=== PATIENT | female | born 1960 | race Caucasian/White ===

== ENCOUNTER 2018-11-08 13:40 | Inpatient (IN) | payer BC ==
[~2018-11-08] VITALS: Ht 160 cm; Wt 83.0 kg
[2018-11-08 13:48] VITALS: Ht 160 cm; Wt 83.0 kg
--- NOTE | 2018-11-08 13:50 | NUR ---
INSTRUCTED TO GIVE CLEAN CATCH URINE SPECIMEN, AMBULATED TO ED LOBBY.
[2018-11-08 14:13] LABS: BASOPHIL % 0.1 % (0-2); PLATELET COUNT 263 x10^3mcL (130-400); RED CELL DISTRIBUTION WIDTH 12.6 % (11.5-14.5)
[2018-11-08 14:49] LABS: ALKALINE PHOSPHATASE 126 U/L (46-116); ALT/SGPT 33 U/L (14-59); AST/SGOT 15 U/L (15-37); BILIRUBIN TOTAL 0.3 mg/dL (0.20-1.00); CALCIUM 7.6 mg/dL (8.5-10.1); CREATININE SERUM 0.8 mg/dL (0.6-1.0); GFR1 > 60 mL/min; GLUCOSE SERUM 327 mg/dL (74-106); LIPASE 102 IU/L (73-393); TOTAL PROTEIN, SERUM 7.2 g/dL (6.4-8.2)
--- NOTE | 2018-11-08 15:00 | NUR ---
PT PRESENTS TO ED WITH C/O BUQ ABD PAIN X 1 WEEK PT REPORTS INTERMITTENT DIARRHEA HOWEVER NO EPISODES TODAY, PT STATES SHE VISITED HER PMD OFFICE 11/04/18 AND WAS GIVEN OMEPRAZOLE AND 2 INJECTIONS. PT REPORTS VOMITING AND DIARRHEA RESOLVED. HOWEVER, ABD PAIN STILL PERSISTS. PT AAOX4 ABD SOFT ROUND AWAITING MD DE LA GARZA AND ORDERS. WILL MONITOR
--- NOTE | 2018-11-08 15:08 | NUR ---
URINE COLLECTED WILL DIP
[2018-11-08 15:46] LABS: CHLORIDE SERUM 102 mmol/L (98-107); POTASSIUM SERUM 4.3 mmol/L (3.5-5.1); SODIUM SERUM 137 mmol/L (136-145)
[2018-11-08 15:48] LABS: ALBUMIN 3.1 g/dL (3.4-5.0)
--- NOTE | 2018-11-08 16:40 | NUR ---
MSE COMPLETED BY DR BRIGGS
--- NOTE | 2018-11-08 17:09 | NUR ---
PT MEDICATED PER MD ORDERS SEE EMAR
--- NOTE | 2018-11-08 17:25 | NUR ---
PT TO CT
--- NOTE | 2018-11-08 18:00 | NUR ---
PT BACK FROM CT WITH NO INCIDENT
--- NOTE | 2018-11-08 18:35 | NUR ---
PT FEELING A LOT BETTER SINCE BEING MEDICATED. FAMILY AT BEDSIDE PT WATCHING TV WILL CONTINUE TO MONITOR
--- NOTE | 2018-11-08 19:08 | NUR ---
REPORT GIVEN TO WALT ALLEN AND MANISH MATA RN RESUMING CARE OF PT AT THIS TIME
--- NOTE | 2018-11-08 19:30 | NUR ---
PT AMBULATED WITH STEADY GAIT TO THE RESTROOM.
--- NOTE | 2018-11-08 20:00 | NUR ---
PT STATING SHE IS HUNGRY AND IS CONCERNED HER BLOOD SUGAR IS LOW. DR. BRIGGS MADE AWARE. BS IS 129.
--- NOTE | 2018-11-08 20:43 | NUR ---
GROUNDS KEEPER REPORTED THAT PT HAD CONCERNS WITH RECEIVING ORAL CONTRAST DUE TO POSSIBLE OBSTRUCTION. SPOKE TO DR BRIGGS REGARDING PLAN OF CARE. REPORTS THAT HE WILL CANCEL IT FOR NOW AND [place] UPON ADMISSION.
--- NOTE | 2018-11-08 21:29 | NUR ---
PT C/O NAUSEA AND VOMITTING, REQUESTING ANTI NAUSEA MEDICATION. MD MADE AWARE. PT AMBULATED WITH STEADY GAIT TO THE RESTROOM.
--- NOTE | 2018-11-08 21:39 | NUR ---
PT MEDICATED PER MD ORDER. PT VERBALIZED UNDERSTANDING OF MEDICATION PRIOR TO ADMINISTRATION.
[2018-11-08] MEDS ORDERED: OMEPRAZOLE40 M1 PO (22:10)
[2018-11-08] MEDS ORDERED: SUCRALFATE1 GM PO (22:11)
[2018-11-08] MEDS ORDERED: METFORMIN HYD1000 M2 PO (22:11)
[2018-11-08] MEDS ORDERED: JANUVIA100 M1 PO (22:11)
[2018-11-08] MEDS ORDERED: INVOKANA300 MG PO (22:13)
[2018-11-08] MEDS ORDERED: LANTUS SOLOS100 U/M1 SQ (22:15)
[2018-11-08] MEDS ORDERED: HUMALOG MIX75/253 ML SC (22:15)
--- NOTE | 2018-11-08 22:33 | NUR ---
REPORT CALLED TO TIFFANY AREVALO TO ASSUME CARE OF PT.
[2018-11-08 22:50] LABS: CHOLESTEROL/HDL RATIO 2.5
--- NOTE | 2018-11-08 22:50 | NUR ---
RECEIVED FROM ED,PUT IN ROOM 237 B AND MADE COMFORTABLE.MAINLY HAITIAN,POLY OPERATOR USED.PATIENT TO BE ADMITTED BY Zaid GONZALEZTELE 6 ASSIGNED,SR.NO CHEST PAIN.
--- NOTE | 2018-11-08 22:52 | NUR ---
PT ADMITTED TO TELE, TRANSPORTED BY RN OJZEF AND EMT MINDY. PT IS AWAKE, ALERT, RESP E/U, NAD NOTED. PT VERBALIZED UNDERSTANDING OF PLAN OF CARE.
[2018-11-08 23:07] VITALS: BP 130/69
--- NOTE | 2018-11-08 23:15 | NUR ---
RECEIVED PT FROM ER, PT ADMIT FOR SBO, PT IS A/O X4, VERBAL RESPONSIVE, ABLE TO TELL WHAT SHE NEEDS. LUNG SOUND CLEAR BILATERAL, NO COUGH, NO SOB, PT IS ON TELE 6, NSR, DENY ANY CHEST PAIN OR DISCOMFORT, BOWEL SOUND HYPOACTIVE, DISTENTED. PT C/O DIARRHEA X 1 DAY. DENY ANY N/V AT THIS MOMENT, C/O MILD ABD PAIN 2/10 AT THIS MOMENT, PEDAL PULSE PRESENT BOTH FEET, NO EDEMA, IV AT RIGHT AC, NO LEAKING, NO INFILTRAITON. ALL ADLS ASSIST, ALL NEED MET, CALL LIGHT IN REACH, WILL CONTINUE TO MONTIOR.
--- NOTE | 2018-11-09 00:52 | NUR ---
NS AT 100 CC/ HOUR INITIATED ON ADMISSION. WITH HER EARLIER.UA NEEDED,NOT ABLE TO SAVE EARLIER,HAS NO COLLECTION HAT IN TOILET.REMINDED PATIENT NEXT TIME SHE GO,UA NEED,UDS,UA CULTURE.CALL LIGHT IN REACH.
--- NOTE | 2018-11-09 04:49 | NUR ---
UA UDS AND CULTURE SENT TO LAB.
--- NOTE | 2018-11-09 05:20 | NUR ---
I AND O MEASURED.NO VOMITING OR DIARRHEA SINCE ADMISSION.REMAINS NPO,SBFT THIS AM.
[2018-11-09 05:32] LABS: microscopic required? NO
[2018-11-09 05:48] LABS: urine erythrocyte NEGATIVE (NEGATIVE)
[2018-11-09 05:58] LABS: AMPHETAMINE QUAL UR NONE DETECTED (See below)
[2018-11-09 06:18] VITALS: BP 125/66
--- NOTE | 2018-11-09 06:54 | NUR ---
NEW ORDER FROM DR WALDRON TO INSERT NGT TO LOW INTERMITTENT SUCTION,AGREED WIT IT AFTER EPI TALK TO PATIENT ,RATIONALE OF IT.
--- NOTE | 2018-11-09 07:09 | NUR ---
NGT TRIED TO PUT 2X,PATIENT CANNOT TOLERATE THIS TIME,KEEP GAGGING.WILL HAVE NEXT SHIFT TRIED.VAUGHN AND CHERRY AWARE.WILL ENDORSE TO JAMIA,AM SHIFT.IT IS A NEW ORDER 20 MINUTES AGO.
[2018-11-09 07:28] LABS: BASOPHIL % 0.3 % (0-2); PLATELET COUNT 246 x10^3mcL (130-400); RED CELL DISTRIBUTION WIDTH 12.7 % (11.5-14.5)
--- NOTE | 2018-11-09 07:30 | NUR ---
RECEIVED PT IN BED A/A/OX4 DENIES LY. RESP EVEN AND UNLABORED WITH CLEAR BS BILAT. DENIES ANY SOB/CP/PRESSURE AT THIS TIME. NSR ON TELE. IVF TO RAC. NO EDEMA NOTED. ABD SOFT, OBESE, TENDER TO TOUCH WITH ACTIVE BS X4. DENIES ANY N/V OR PAIN AT THIS TIME. C/O FEELING BLOATED. VOIDING FREELY. AMBULATORY. NPO EXCEPT MEDS FOR SBFT ORDERED THIS AM. PT WITH ORDER FOR NGT PLACEMENT REFUSED ATTEMPT AT THIS TIME SINCE THEY HAD ATTEMPTED AND SHE STATED HER NOSE WAS HURTING AT THIS TIME. AGREED TO ALLOW LATER TODAY. CALL LIGHT IN REACH NEEDS ATTENDED TO.
[2018-11-09 07:31] LABS: CALCIUM 7.7 mg/dL (8.5-10.1); CARBON DIOXIDE 24.5 mmol/L (21-32); CHLORIDE SERUM 108 mmol/L (98-107); CREATININE SERUM 0.6 mg/dL (0.6-1.0); GFR1 > 60 mL/min; GLUCOSE SERUM 105 mg/dL (74-106); MAGNESIUM 1.8 mg/dL (1.8-2.4); PHOSPHOROUS 3.3 mg/dL (2.5-4.9); POTASSIUM SERUM 3.9 mmol/L (3.5-5.1); SODIUM SERUM 143 mmol/L (136-145)
--- NOTE | 2018-11-09 08:38 | NUR ---
PT WAS ASKED DURING BEDSIDE REPORT IF SHE WOULD ALLOW ANOTHER ATTEMPT TO INSERT NGT AND REFUSED AT THIS TIME. STATED NOSE WAS SORE AND WANTED TO WAIT. CURRENTLY INSTRUCTIONAL SUPPORT TECHNICIAN IN TO SPEAK WITH PT EXPLAINING SBFT EXAM TO BE DONE THIS AM. PT AGREABLE. NGT INSERTION WILL BE POSTPONE SINCE PT MAY BECOME NAUSEOUS WITH PROCEDURE AND PT REFUSED INSERTION AT THIS TIME. PT REQUESTED ZOFRAN PER EMAR TO PREVENT NAUSEA WITH CONTRAST TO BE INGESTED.
[2018-11-09 08:40] VITALS: BP 122/68
--- NOTE | 2018-11-09 09:45 | NUR ---
PT WITH ON GOING SBFT EXAM. CONTRAST GIVEN AND XRAY TAKEN. PT AT BEDSIDE DENIES ANY DISCOMFORT OR N/V. CALL LIGHT IN REACH NEEDS ATTENDED TO.
--- NOTE | 2018-11-09 10:13 | NUR ---
DR. PAREDES AT [facility]. MADE AWARE OF RATIONALE FOR NGT NOT BEING INSERT AT THIS TIME. PER MD NO NGT NECESSARY AT THIS TIME. PT DOES NOT REQUIRE INSERTION. WILL CONT TO MONITOR.
[2018-11-09 12:32] VITALS: BP 117/70
--- NOTE | 2018-11-09 15:40 | NUR ---
MADE AWARE BY RADIOLOGY THAT SBF EXAM WAS COMPLETED. PT RESTING AT THIS TIME. DENIES ANY PAIN/DISCOMFORT. CALL LIGHT IN REACH NEEDS ATTENDED TO.
--- NOTE | 2018-11-09 16:20 | NUR ---
DR. PAREDES CALLED TO INQUIRE ABOUT SBFT, MADE AWARE THAT EXAM JUST CONCLUDED. WITH NO RESULTS POSTED AT THIS TIME. STATED HE WILL F/U.
--- NOTE | 2018-11-09 17:21 | NUR ---
PT C/O NAUSEA MEDICATED WITH ZOFRAN IVP PER EMAR. PT NOTED WITH BS 86 CONT TO BE NPO AT THIS TIME. DR. FLORES PAGED TO REQUEST D5 SINCE PT WILL CONT TO BE NPO.
[2018-11-09 17:50] VITALS: BP 118/69
--- NOTE | 2018-11-09 18:01 | NUR ---
NOTED IV TO RAC LEAKING NEW IV INSERTED LFA 22G.
--- NOTE | 2018-11-09 18:30 | NUR ---
NOTED SBFT RESULTS NEGATIVE FOR SMALL BOWEL OBSTRUCTION. PAGE GATE MESSAGE SENT TO DR. FLORES. AWAITING FURTHER ORDERS.
--- NOTE | 2018-11-09 19:16 | NUR ---
DR. PAREDES PAGED REGARDING SBFT RESULTS. ENDORSE TO NOC SHIFT NURSE FOR CALL BACK.
--- NOTE | 2018-11-09 19:21 | NUR ---
DR OCHOA TALKED TO DR PAREDES,ORDERED FULL LIQUID DIET,NO SURGERY IN AM.
--- NOTE | 2018-11-09 19:35 | NUR ---
SHIFT REASSESSMENT DONE.PATINT ALERT AND ORIENTED. AT BEDSIDE,SUPPORTIVE OF CARE.PATIENT NOW ON FULL LIQUID DIET.IVF CHANGED TO NS,STILL UNVERFIED.NO SURGERY IN AM,PATIENT MADE AWARE.LFA IV SITE NEW TODAY,INTACT AND PATENT.CALL LIGHT IN REACH.
--- NOTE | 2018-11-09 20:27 | NUR ---
IVF NS AT 70 CC/ HOUR.FAMILY AT BDSIDE.UPDATED WITH PATIENT,NO SURGERY.WANTING TO KNOW IF SHE IS FOR DC TOMORROW,I SAY NO ORDER YET.
[2018-11-09 21:05] VITALS: BP 113/57
--- NOTE | 2018-11-10 04:31 | NUR ---
SLEEPING COMFORTABLY.NO COMPLAINT,IVF NS INFUSING.CALL LIGHT IN REACH.
[2018-11-10 05:55] VITALS: BP 115/53
--- NOTE | 2018-11-10 06:12 | NUR ---
PATIENT I AND O MEASURED.NO DISTRESS THIS SHIFT.NO VOMITING.NO DIARRHEA.WILL ENDORSE TO NEXT SHIFT.
[2018-11-10 07:06] LABS: CARBON DIOXIDE 22.5 mmol/L (21-32); CHLORIDE SERUM 106 mmol/L (98-107); CREATININE SERUM 0.5 mg/dL (0.6-1.0); GFR1 > 60 mL/min; GLUCOSE SERUM 103 mg/dL (74-106); MAGNESIUM 1.7 mg/dL (1.8-2.4); PHOSPHOROUS 3.1 mg/dL (2.5-4.9); POTASSIUM SERUM 4.4 mmol/L (3.5-5.1); SODIUM SERUM 141 mmol/L (136-145)
[2018-11-10 07:16] LABS: BASOPHIL % 0.4 % (0-2); PLATELET COUNT 267 x10^3mcL (130-400); RED CELL DISTRIBUTION WIDTH 12.9 % (11.5-14.5)
--- NOTE | 2018-11-10 07:30 | NUR ---
PT ENDORSE TO ME THIS MORNING. LAYING IN BED RESTING AA/O X4, [place] SPK. TELE 6 SR NOTED, HR 76, DENIES ANY CP OR PRESSURE AT THIS TIME. BOWEL SOUNDS ACTIVE IN ALL FOUR QUADS, LAST BM 11/10, CURRENTLY ON FULL LIQ DIET/ TOLERATING WELL. AMB, VOIDS FREELY. IV TO THE LFA INTACT AND PATENT/ INFUSING AT 40ML/HR, NO REDNESS OR SWELLING NOTED. CALL LIGHT IN REACH. BED IN LOW POSITION, X2 SIDE RAILS UP. WILL CONTINUE TO MONITOR
[2018-11-10 08:38] VITALS: BP 111/55
--- NOTE | 2018-11-10 10:04 | NUR ---
PT C/O OF GEN BODY DISCOMFORT, MEDICATED PER EMAR. PT TOLERATED FULL LIQ SNACKS PROVIDED. WILL CONTINUE TO MONITOR.
[2018-11-10 12:16] VITALS: BP 140/67
--- NOTE | 2018-11-10 14:04 | NUR ---
PT TOLERATED 100% OF FULL LIQ LUNCH/ DENIES ANY N/V AT THIS TIME. WILL CONTINUE TO MONITOR.
[2018-11-10 17:46] VITALS: BP 118/68
--- NOTE | 2018-11-10 18:37 | NUR ---
NO ACUTE CHANGES AT THIS TIME. NO ACUTE RESP DISTRESS OR SOB NOTED. DENIES ANY ABD PAIN OR DISCOMFORT. TOLERATED 100% OF REG DINNER WITH NO N/V NOTED. IV TO THE LFA INTACT AND PATENT/ NO REDNESS OR SWELLING NOTED. WILL ENDORSE TO INCOMING RN.
--- NOTE | 2018-11-10 19:25 | NUR ---
RECIEVED PT IN NO ACUTE DISTRESS. AOX4. TELE #6, SR. BREATHING E/U. BOWEL SOUNDS ACTIVE. DENIES ABD PAIN/N/V. IV TO LFA, PATENT. BED IN LOWEST POSITION, 2 SIDE RAILS UP, CALL LIGHT IN REACH. INSTRUCTED TO CALL FOR ASSISTANCE.
[2018-11-10 19:42] VITALS: BP 117/62
--- NOTE | 2018-11-11 02:04 | NUR ---
RESTING WITH EYES CLOSED. BREATHING E/U. NO ACUTE DISTRESS NOTED. WILL CONTINUE TO MONITOR.
[2018-11-11 05:20] VITALS: BP 117/60
--- NOTE | 2018-11-11 06:15 | NUR ---
NO C/O ABD PAIN/N/V OVERNIGHT. NO ACUTE DISTRESS NOTED. WILL ENDORSE TO ONCOMING RN.
--- NOTE | 2018-11-11 07:11 | NUR ---
RECEIVED PT FROM GEOMETRY TUTOR NURSE. PT RESTING IN BED, AOX4, RESP E/U ON RA. DENIES ABD PAIN OR N/V, NO ACUTE DISTRESS NOTED. ON TELE 6 SHOWING NSR, HR: 86. IV TO LFA W/ NO SIGNS OF INFILTRATION, IVF INFUSING WELL. BED IN LOWEST POSITION AND CALL LIGHT WITHIN REACH. WILL CONTINUE TO MONITOR.
[2018-11-11 08:12] VITALS: BP 113/63
[2018-11-11 12:07] VITALS: BP 113/71
--- NOTE | 2018-11-11 12:30 | NUR ---
PT IN BED HAVING LUNCH, AOX4, RESP E/U ON RA. DENIES ABD PAIN OR N/V. TOLERATING REGULAR DIET WELL. NO ACUTE DISTRESS NOTED. BED IN LOWEST POSITION AND CALL LIGHT WITHIN REACH. WILL CONTINUE TO MONITOR.
[2018-11-11 13:00] VITALS: BP 113/71
--- NOTE | 2018-11-11 13:40 | NUR ---
PT DISCHARGED. REVIEWED VISIT SUMMARY, EDUCATIONAL PACKET AND FOLLOW UP INSTRUCTIONS. PT AOX4, RESP E/U ON RA, VS STABLE, DENIES PAIN AT THIS TIME. IV TO L HAND REMOVED, CATH INTACT, GAUZE DRESSING APPLIED. PT AMBULATORY TO DISCHARGE OFFICE, ESCORTED BY FRIEND AND STUDENT NURSE TATY W/ NO ACUTE INCIDENCE.
== END 2018-11-11 13:40 | disposition home or self-care (01) | DRG 394 ==
LOC: ED 13:40 → MU 21:14 → DU 21:14
PROVIDERS: Internal Medicine; ADMIT Internal Medicine
DX: K43.9 Ventral hernia without obstruction or gangrene (principal); E44.1 Mild protein-calorie malnutrition; E78.5 Hyperlipidemia, unspecified; E86.0 Dehydration; E11.65 Type 2 diabetes mellitus with hyperglycemia; Z68.34 Body mass index [BMI] 34.0-34.9, adult; Z90.49 Acquired absence of other specified parts of digestive tract; Z79.4 Long term (current) use of insulin; E83.51 Hypocalcemia; K21.9 Gastro-esophageal reflux disease without esophagitis
CPT/HCPCS: 82962; G0378; J1815; J2270; J2405; J7030; J7042; J8597; Q0092; Q9967

== ENCOUNTER 2019-07-03 08:21 | Inpatient (IN) | payer BC ==
[~2019-07-03] VITALS: Ht 154.9 cm; Wt 84.8 kg
[~2019-07-03 08:21] MED LIST: HUMALOG MIX75/253 ML SC; INVOKANA300 MG PO; JANUVIA100 M1 PO; LANTUS SOLOS100 U/M1 SQ; METFORMIN HYD1000 M2 PO; OMEPRAZOLE40 M1 PO; SUCRALFATE1 GM PO
[2019-07-03 08:36] VITALS: Ht 154.9 cm; Wt 84.8 kg
[2019-07-03 08:45] LABS: microscopic required? NO
[2019-07-03 09:19] LABS: BASOPHIL % 0.1 % (0-2); PLATELET COUNT 300 x10^3mcL (130-400); RED CELL DISTRIBUTION WIDTH 12.8 % (11.5-14.5)
[2019-07-03 09:50] LABS: UA SPECIFIC GRAVITY 1.015 (1.005-1.035); urine erythrocyte NEGATIVE (NEGATIVE)
[2019-07-03 10:05] LABS: ALBUMIN 3.7 g/dL (3.4-5.0); ALKALINE PHOSPHATASE 117 U/L (46-116); ALT/SGPT 37 U/L (14-59); AST/SGOT 21 U/L (15-37); BILIRUBIN TOTAL 0.9 mg/dL (0.20-1.00); CARBON DIOXIDE 25.8 mmol/L (21-32); CHLORIDE SERUM 96 mmol/L (98-107); CREATININE SERUM 0.8 mg/dL (0.6-1.0); GFR1 > 60 mL/min; GLUCOSE SERUM 276 mg/dL (74-106); LIPASE 98 IU/L (73-393); POTASSIUM SERUM 4.7 mmol/L (3.5-5.1); SODIUM SERUM 135 mmol/L (136-145)
[2019-07-03 10:10] LABS: TOTAL PROTEIN, SERUM 8.4 g/dL (6.4-8.2)
[2019-07-03 10:12] LABS: CALCIUM 10.2 mg/dL (8.5-10.1)
[2019-07-03 12:29] VITALS: BP 140/81
[2019-07-03 14:27] LABS: MAGNESIUM 2.3 mg/dL (1.8-2.4)
[2019-07-03 19:52] VITALS: BP 119/73
[2019-07-04 05:19] VITALS: BP 113/66
[2019-07-04 07:09] LABS: PLATELET COUNT 256 x10^3mcL (130-400); RED CELL DISTRIBUTION WIDTH 12.9 % (11.5-14.5)
[2019-07-04 07:24] LABS: CALCIUM 8.4 mg/dL (8.5-10.1); CARBON DIOXIDE 23.2 mmol/L (21-32); CHLORIDE SERUM 106 mmol/L (98-107); CREATININE SERUM 0.7 mg/dL (0.6-1.0); GFR1 > 60 mL/min; GLUCOSE SERUM 149 mg/dL (74-106); POTASSIUM SERUM 4.4 mmol/L (3.5-5.1); SODIUM SERUM 140 mmol/L (136-145)
[2019-07-04 07:44] LABS: BASOPHIL % 0 % (0-2)
[2019-07-04 08:37] VITALS: BP 115/66
[2019-07-04 13:02] VITALS: BP 109/68
[2019-07-04 17:00] VITALS: BP 102/65
[2019-07-04 21:16] VITALS: BP 104/65
[2019-07-05 04:25] VITALS: BP 126/75
[2019-07-05 06:36] LABS: BASOPHIL % 0.3 % (0-2); PLATELET COUNT 221 x10^3mcL (130-400); RED CELL DISTRIBUTION WIDTH 12.9 % (11.5-14.5)
[2019-07-05 06:52] LABS: CALCIUM 8.1 mg/dL (8.5-10.1); CARBON DIOXIDE 30.3 mmol/L (21-32); CHLORIDE SERUM 103 mmol/L (98-107); CREATININE SERUM 0.6 mg/dL (0.6-1.0); GFR1 > 60 mL/min; GLUCOSE SERUM 191 mg/dL (74-106); MAGNESIUM 1.8 mg/dL (1.8-2.4); POTASSIUM SERUM 3.8 mmol/L (3.5-5.1); SODIUM SERUM 138 mmol/L (136-145)
[2019-07-05 07:46] VITALS: BP 123/69
[2019-07-05 12:24] VITALS: BP 133/75
[2019-07-05 16:26] VITALS: BP 125/73
[2019-07-05 20:57] VITALS: BP 115/70
[2019-07-06 05:40] VITALS: BP 119/76
[2019-07-06 06:26] LABS: CALCIUM 8.3 mg/dL (8.5-10.1); CARBON DIOXIDE 29.7 mmol/L (21-32); CHLORIDE SERUM 103 mmol/L (98-107); CREATININE SERUM 0.6 mg/dL (0.6-1.0); GFR1 > 60 mL/min; GLUCOSE SERUM 197 mg/dL (74-106); POTASSIUM SERUM 3.8 mmol/L (3.5-5.1); SODIUM SERUM 139 mmol/L (136-145)
[2019-07-06 06:35] LABS: BASOPHIL % 0.2 % (0-2); PLATELET COUNT 239 x10^3mcL (130-400); RED CELL DISTRIBUTION WIDTH 12.5 % (11.5-14.5)
[2019-07-06 07:27] VITALS: BP 120/70
[2019-07-06] MEDS ORDERED: HYDROCODONE BIT1 T51 PO (09:05)
[2019-07-06] MEDS ORDERED: COLACE100 MG PO (09:05)
[2019-07-06] MEDS ORDERED: AUGMENTIN1 TA1 PO (09:07)
[2019-07-06] MEDS ORDERED: MOT800 PO (09:08)
[2019-07-06] MEDS ORDERED: GOOD SENSE OMEP20 MG PO (09:08)
[2019-07-06 10:28] VITALS: BP 120/70
== END 2019-07-06 11:43 | disposition home or self-care (01) | DRG 854 ==
LOC: ED 08:21 → DU 10:47 → MU 10:47 → DU 11:49 → MU 07-05 09:23
PROVIDERS: Emergency Medicine; Student in an Organized Health Care Education/Training Program; Surgery; ADMIT Internal Medicine
PROC: 0DNU0ZZ Release Omentum, Open Approach (ICD-10-PCS; 2019-07-03)
PROC: 0DH67UZ Insertion of Feeding Device into Stomach, Via Natural or Artificial Opening (ICD-10-PCS; 2019-07-03)
PROC: 0WQF0ZZ Repair Abdominal Wall, Open Approach (ICD-10-PCS; principal; 2019-07-03 16:00)
DX: A41.9 Sepsis, unspecified organism (principal); K43.6 Other and unspecified ventral hernia with obstruction, without gangrene; E87.1 Hypo-osmolality and hyponatremia; K56.7 Ileus, unspecified; I10 Essential (primary) hypertension; E11.9 Type 2 diabetes mellitus without complications; E11.65 Type 2 diabetes mellitus with hyperglycemia; K21.9 Gastro-esophageal reflux disease without esophagitis; K76.0 Fatty (change of) liver, not elsewhere classified; E66.9 Obesity, unspecified; Z90.49 Acquired absence of other specified parts of digestive tract; Z79.899 Other long term (current) drug therapy; Z79.4 Long term (current) use of insulin
CPT/HCPCS: 82962; 87804; G0378; J0330; J1170; J1650; J2270; J2405; J2543; J2704; J2710; J3010; J3490; J7030; J7050; J7120; Q0092